=== PATIENT | female | born 1955 | race Caucasian/White ===

== ENCOUNTER 2016-05-12 10:39 | Day surgery (SDC) | payer OTHER ==
--- NOTE | 2016-05-11 17:42 | PCM.PREANE ---
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: no symptoms Respiratory: Reports: no symptoms Cardiovascular: Reports: no symptoms GI: Reports: no symptoms Other: Reports: none - PHYSICAL ASSESSMENT Height: 5 ft 5 in Weight: 74.843 kg ASA Class: 3 Mental Status: alert & oriented x3 Airway Class: Mallampati = 2 Dentition: Reports: normal dentition Thyro-Mental Finger Breadths: 3 Mouth Opening Finger Breadths: 3 ROM/Head Extension: full Respiratory Status: lungs clear to auscultation bilaterally Cardiovascular Status: regular rate & rhythm, normal S1, S2, no murmur, blood pressure WNL - ALLERGIES Allergies/Adverse Reactions: Allergies Allergy/AdvReac Type Severity Reaction Status Date / Time No Known Allergies Allergy Verified 04/28/15 14:28 - ANESTHESIA PLAN Anesthesia Type Planned: MAC - ACKNOWLEDGEMENTS Pt an appropriate candidate for the planned anesthesia: Yes Alternatives and risks of anesthesia discussed w pt/guardian: Yes Pt/Guardian understands and agree with anesthesia plan: Yes PreAnesthesia Questionnaire HEENT 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: None Cardiovascular 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: None Respiratory 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: None Gastrointestinal 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: Colon polyp 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 Genitourinary 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: None 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: Musculoskeletal 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: None Neurological 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: None Psychiatric 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: None, Anxiety Other Psychiatric History: "anxiety at times" Endocrine/Metabolic 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: Hypothyroidism Hematologic 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: Blood transfusion(s) Immunologic 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: None Oncologic (Cancer) 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: Basal cell carcinoma Dermatologic 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: None - Infectious Disease History Infectious Disease 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: None - Past Surgical History Head Surgeries/Procedures: Reports: None HEENT Surgical 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: Tonsillectomy Cardiovascular Surgical 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: None Respiratory Surgical 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: None GI Surgical 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: Colonoscopy Other GI Surgeries/Procedures: multiple colonoscopies Female Surgical 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: section Endocrine Surgical 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: None Neurological Surgical 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: None Musculoskeletal Surgical 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: None Dermatological Surgical 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: Skin biopsy - SUBSTANCE USE Smoking Status *Q: Never Smoker Tobacco Use Within Last Twelve Months: No Recreational Drug Use History: No - HOME MEDS Home Medications: Home Meds Levothyroxine Sodium [Tirosint] 1 tab PO DAILY 04/28/15 [History] Calcium Carbonate [Calcium] 1 tab PO DAILY 05/09/16 [History] - CURRENT (IN HOUSE) MEDS Current Meds: Current Medications Lactated Ringer's (Ringers, Lactated) 1,000 mls @ 125 mls/hr IV ASDIRECTED YOSSI Sodium Chloride (Saline Flush) 10 ml FLUSH ASDIRECTED PRN PRN Reason: Keep Vein Open Sodium Chloride (Saline Flush) 2.5 ml FLUSH ASDIRECTED PRN PRN Reason: Keep Vein Open
[~2016-05-12 10:39] MED LIST: Lactated Ringers 1,000 ML IV SCH; Sodium Chloride 0.9% 10 ML Syringe FLUSH PRN; Sodium Chloride 0.9% 2.5 ML Syringe FLUSH PRN
[2016-05-12] MEDS ORDERED: Propofol 200 MG/20 ML SDV ONE ×3 (11:17→13:21)
[2016-05-12] MEDS ORDERED: fentaNYL 100 MCG/2 ML SDV ONE (11:37)
[2016-05-12] MEDS ORDERED: Lidocaine 2% 5 ML SDV ONE (11:38)
[2016-05-12] MEDS ORDERED: Midazolam 1 MG/ML 2 ML SDV ONE (11:38)
--- NOTE | 2016-05-12 12:45 | PCM.OPNOTE ---
- General Post-Op/Procedure Note Date of Surgery/Procedure: 05/12/16 Operative Procedure(s): Diagnostic colonoscopy Findings: Hepatic flexture polyp Pre Op Diagnosis: Colon polyps Post-Op Diagnosis: same Anesthesia Technique: MAC Primary Surgeon: Milla Santamaria Condition: Good
[2016-05-12 13:10] VITALS: BP 114/69
--- NOTE | 2016-05-12 14:00 | PCM.POSTAN ---
POST ANESTHESIA ASSESSMENT - MENTAL STATUS Mental Status: alert, oriented - RESPIRATORY Respiratory Status: respiratory rate WNL, airway patent, O2 saturation stable - CARDIOVASCULAR CV Status: pulse rate WNL, blood pressure stable - GASTROINTESTINAL GI Status: no symptoms - POST OP HYDRATION Hydration Status: adequate & stable
--- NOTE | 2016-05-12 14:01 | PCM48HPAN ---
Post Anesthesia Note - EVALUATION WITHIN 48HRS OF ANESTHETIC Vital Signs in Normal Range: Yes Patient Participated in Evaluation: Yes Respiratory Function Stable: Yes Airway Patent: Yes Cardiovascular Function Stable: Yes Hydration Status Stable: Yes Pain Control Satisfactory: Yes Nausea and Vomiting Control Satisfactory: Yes Mental Status Recovered: Yes
--- NOTE | 2016-05-12 18:53 | OR ---
SURGEON: KTAHY PUENTES MD DATE OF PROCEDURE: 05/12/2016 PREOPERATIVE DIAGNOSIS: History of colon polyps. POSTOPERATIVE DIAGNOSIS: Hepatic flexure polyp. PROCEDURE PERFORMED: Colonoscopy with biopsies. INSTRUMENT USED: Olympus colonoscope. ANESTHESIA: MAC. EXTENT OF EXAM: To the cecum. PREPARATION: Good. LIMITATIONS: None. INDICATIONS: The patient is a 60-year-old female, who presents with a personal history of colon polyps. She has had multiple colonoscopies done with multiple polyps removed at that time. The patient is here for followup colonoscopy. We discussed the procedure as well as expected perioperative course. We discussed the risks, including bleeding, infection, or damage to surrounding structures, including perforation. The patient verbalized understanding and wishes to proceed. PROCEDURE IN DETAIL: The patient was brought to the endoscopy suite and placed in left lateral decubitus position. A time-out was completed verifying the patient's name, age, date of , allergies, and procedure to be performed. Monitored anesthesia care was induced and continuous oxygen was provided via face mask throughout the procedure. After adequate anesthesia was achieved, a digital rectal exam was performed. This examination was within normal limits. A well lubricated colonoscope was then inserted in the rectum and advanced under direct visualization to the level of cecum. The cecum was identified by both visual and anatomic landmarks. A photograph was taken of the cecal cap. The scope was then fully withdrawn while examining the color, texture, anatomy, and integrity of the mucosa from the cecum to the anal canal. A small 1-2 mm sessile polyp was noted within the hepatic flexure. This was removed using a cold biopsy forceps. The mass was sent as a hepatic flexure polyp. The remainder of the exam was normal other than diverticulosis that was limited to the sigmoid colon and was mild in nature. The scope was then brought into the rectum and retroflexed to allow visualization of the anal canal opening. This was normal and a photograph was taken. The scope was then straightened out and removed from the patient. The procedure was terminated. The patient was taken to the PACU in stable condition. ENDOSCOPIC DIAGNOSIS: Mild diverticulosis and hepatic flexure polyp. RECOMMENDATIONS: Follow up in clinic in 2 weeks. TERENCE ABREU /[id number]
== END 2016-05-12 13:32 | disposition home or self-care (01) ==
LOC: EDBD → MW.SDS 10:39
PROVIDERS: ATTEND Surgery
PROC: 0DBL8ZZ Excision of Transverse Colon, Via Natural or Artificial Opening Endoscopic (ICD-10-PCS; principal; 2016-05-12)
DX: D01.0 Carcinoma in situ of colon (principal); D12.3 Benign neoplasm of transverse colon; K57.30 Diverticulosis of large intestine without perforation or abscess without bleeding; E03.9 Hypothyroidism, unspecified; Z79.899 Other long term (current) drug therapy
CPT/HCPCS: 45380; 88305; J2250; J3010; J7120; J2704

== ENCOUNTER 2017-07-05 11:39 | Day surgery (SDC) | payer OTHER ==
[~2017-07-05 11:39] MED LIST changes: +Desflurane 240 ML Bottle ONE; +Lidocaine 2% 5 ML SDV ONE; +Propofol 200 MG/20 ML SDV ONE
--- NOTE | 2017-07-05 12:43 | PCM.PREANE ---
Preanesthetic Assessment - Anesthesia/Transfusion/Family Hx Anesthesia History: Prior Anesthesia Without Reaction Family History of Anesthesia Reaction: No Transfusion History: Prior Transfusion Without Reaction - Review of Systems General: No Symptoms Pulmonary: No Symptoms Cardiovascular: No Symptoms Gastrointestinal: No Symptoms Neurological: No Symptoms Other: Reports: None - Physical Assessment NPO Status Date: 07/04/17 O2 Sat by Pulse Oximetry: 97 Respiratory Rate: 16 Vital Signs: Last Vital Signs Temp 36.1 C 07/05/17 12:04 Pulse 73 07/05/17 12:04 Resp 16 07/05/17 12:04 BP 132/83 07/05/17 12:04 Pulse Ox 97 07/05/17 12:04 Height: 1.68 m Weight: 73.936 kg ASA Class: 2 Mental Status: Alert & Oriented x3 Airway Class: Mallampati = 1 Dentition: Reports: Normal Dentition ROM/Head Extension: Full Lungs: Clear to Auscultation, Normal Respiratory Effort Cardiovascular: Regular Rate, Regular Rhythm - Allergies Allergies/Adverse Reactions: Allergies Allergy/AdvReac Type Severity Reaction Status Date / Time No Known Allergies Allergy Verified 07/03/17 10:29 - Anesthesia Plan Pre-Op Medication Ordered: None - Acknowledgements Anesthesia Type Planned: MAC Pt an Appropriate Candidate for the Planned Anesthesia: Yes Alternatives and Risks of Anesthesia Discussed w Pt/Guardian: Yes Pt/Guardian Understands and Agrees with Anesthesia Plan: Yes PreAnesthesia Questionnaire HEENT 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: None Cardiovascular 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: None Respiratory 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: None Gastrointestinal 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: Colon Polyp 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 Genitourinary 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: None 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: Musculoskeletal 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: None Neurological 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: None Psychiatric 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: Anxiety, Depression Other Psychiatric History: "anxiety at times" Endocrine/Metabolic 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: None Hematologic 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: Blood Transfusion(s) Immunologic 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: None Oncologic (Cancer) 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: None Dermatologic 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: None - Infectious Disease History Infectious Disease 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: None - Past Surgical History Head Surgeries/Procedures: Reports: None HEENT Surgical 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: Tonsillectomy Cardiovascular Surgical 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: None Respiratory Surgical 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: None GI Surgical 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: Colonoscopy Other GI Surgeries/Procedures: multiple colonoscopies Female Surgical 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: Section Endocrine Surgical 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: None Neurological Surgical 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: None Musculoskeletal Surgical 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: None Dermatological Surgical 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: Skin Biopsy - SUBSTANCE USE Smoking Status *Q: Never Smoker Tobacco Use Within Last Twelve Months: No Recreational Drug Use History: No - HOME MEDS Home Medications: Home Meds Levothyroxine Sodium [Tirosint] 1 tab PO DAILY 04/28/15 [History] Calcium Carbonate [Calcium] 1 tab PO DAILY 05/09/16 [History] - CURRENT (IN HOUSE) MEDS Current Meds: Current Medications Lactated Ringer's (Ringers, Lactated) 1,000 mls @ 125 mls/hr IV ASDIRECTED YOSSI Last Admin: 07/05/17 12:39 Dose: 125 mls/hr Sodium Chloride (Saline Flush) 10 ml FLUSH ASDIRECTED PRN PRN Reason: Keep Vein Open Sodium Chloride (Saline Flush) 2.5 ml FLUSH ASDIRECTED PRN PRN Reason: Keep Vein Open Sodium Chloride (Saline Flush) 10 ml FLUSH ASDIRECTED PRN PRN Reason: Keep Vein Open Sodium Chloride (Saline Flush) 2.5 ml FLUSH ASDIRECTED PRN PRN Reason: Keep Vein Open Discontinued Medications Desflurane (Suprane) Confirm Administered Dose 480 ml .ROUTE .STK-MED ONE Stop: 07/03/17 08:52 Lidocaine (Xylocaine-Mpf 2%) Confirm Administered Dose 5 ml .ROUTE .STK-MED ONE Stop: 07/05/17 09:40 Propofol (Diprivan 20 Ml) Confirm Administered Dose 400 mg .ROUTE .STK-MED ONE Stop: 07/05/17 09:41
[2017-07-05] MEDS ORDERED: Propofol 200 MG/20 ML SDV ONE (13:57)
--- NOTE | 2017-07-05 14:08 | PCM.OPNOTE ---
- General Post-Op/Procedure Note Date of Surgery/Procedure: 07/05/17 Operative Procedure(s): Colonoscopy Findings: Sigmoid colon polyp x 2 in distal sigmoid colon. Transverse colon polyp Pre Op Diagnosis: History of colon polyps Post-Op Diagnosis: Sigmoid colon polyp x 2, transverse colon polyp Anesthesia Technique: MAC Primary Surgeon: Milla Santamaria Condition: Good
--- NOTE | 2017-07-05 14:34 | PCM.POSTAN ---
POST ANESTHESIA ASSESSMENT - MENTAL STATUS Mental Status: Alert, Oriented - RESPIRATORY Respiratory Status: Respiratory Rate WNL, Airway Patent, O2 Saturation Stable - CARDIOVASCULAR CV Status: Pulse Rate WNL, Blood Pressure Stable - GASTROINTESTINAL GI Status: No Symptoms - POST OP HYDRATION Hydration Status: Adequate & Stable
[2017-07-05 14:37] VITALS: BP 125/79
--- NOTE | 2017-07-05 14:41 | PCM48HPAN ---
Post Anesthesia Note - EVALUATION WITHIN 48HRS OF ANESTHETIC Vital Signs in Normal Range: Yes Patient Participated in Evaluation: Yes Respiratory Function Stable: Yes Airway Patent: Yes Cardiovascular Function Stable: Yes Hydration Status Stable: Yes Pain Control Satisfactory: Yes Nausea and Vomiting Control Satisfactory: Yes Mental Status Recovered: Yes Resp Rate: 14
--- NOTE | 2017-07-05 21:44 | OR ---
SURGEON: MILLA SANTAMARIA MD DATE OF PROCEDURE: 07/05/2017 PREOPERATIVE DIAGNOSIS: History of colon polyps. POSTOPERATIVE DIAGNOSES: 1. Transverse colon polyp. 2. Sigmoid colon polyps x2. 3. Diverticulosis. PROCEDURE PERFORMED: Diagnostic colonoscopy. ENDOSCOPIST: Milla Santamaria MD. ANESTHESIA: MAC. INSTRUMENT USED: Olympus colonoscope. EXTENT OF EXAM: To the cecum. PREPARATION: Good. LIMITATIONS: None. INDICATION FOR EXAMINATION: The patient is a 61-year-old female, who has had multiple colonoscopies in the past with multiple polyps removed. She presents for a yearly colonoscopy. We discussed the procedure, expected perioperative course, and risks including bleeding, infection, or damage to surrounding structures including perforation. The patient verbalized understanding and wishes to proceed. PROCEDURE IN DETAIL: The patient was brought into the OR and placed on the OR cart in a left lateral decubitus position. A time-out was completed verifying the patient's name, age, date of , allergies, and procedure to be performed. Monitored anesthesia care was induced and continuous oxygen was provided via nasal cannula throughout the procedure. After adequate sedation was achieved, a digital rectal exam was performed. The exam was within normal limits. A well lubricated colonoscope was inserted in the rectum and advanced under direct visualization to the level of the cecum. The cecum was identified by both visual and anatomic landmarks. A photograph was taken of the cecal cap; however, I was unable to retroflex the scope within the cecum given looping of the scope more proximally. The scope was then fully withdrawn while examining the color, texture, and anatomy of the mucosa of the colon. The patient was found to have a 2 to 3 mm sessile polyp in the transverse colon at 80 cm. This was removed using a cold biopsy forceps. She was found to have an approximately 5 mm sessile polyp within the distal sigmoid colon. This was removed using a cold biopsy forceps and labeled as colon polyp #1. A 15 cm from the anus and the distal sigmoid colon, the patient was found to have a pedunculated polyp between 5 mm to 1 cm in size. This was removed using a hot snare. The patient was also noted to have diverticulosis throughout the sigmoid colon. The scope was then brought into the rectum and retroflexed to allow visualization of the anal canal opening. This appeared normal and a photograph was taken. The scope was then straightened out and fully withdrawn. The cecum to anus time was 20 minutes. The patient tolerated the procedure well and was taken to PACU in stable condition. ENDOSCOPIC DIAGNOSES: 1. Transverse colon polyp. 2. Sigmoid colon polyps x2. 3. Diverticulosis. RECOMMENDATIONS: Follow up in the clinic in 2 weeks. TERENCE ABREU /[id number]
== END 2017-07-05 14:50 | disposition home or self-care (01) ==
LOC: MW.SDS 11:39
PROVIDERS: ATTEND Surgery
DX: D12.3 Benign neoplasm of transverse colon (principal); D12.5 Benign neoplasm of sigmoid colon; K57.30 Diverticulosis of large intestine without perforation or abscess without bleeding; M25.561 Pain in right knee; F41.9 Anxiety disorder, unspecified; F32.9 Major depressive disorder, single episode, unspecified; Z79.899 Other long term (current) drug therapy; Z90.89 Acquired absence of other organs; Z98.890 Other specified postprocedural states; Z86.010 Personal history of colon polyps
CPT/HCPCS: 45380; 45385; J7120; 00811; 88305; J2704

== ENCOUNTER 2018-06-18 12:12 | Day surgery (SDC) | payer OTHER ==
[~2018-06-18 12:12] MED LIST changes: -Desflurane 240 ML Bottle ONE; -Lidocaine 2% 5 ML SDV ONE; +Midazolam 1 MG/ML 2 ML SDV ONE; +Sodium Chloride 0.9% 10 ML SDV IV PRN; +fentaNYL 100 MCG/2 ML SDV ONE
--- NOTE | 2018-06-18 12:48 | PCM.PREANE ---
Preanesthetic Assessment - Anesthesia/Transfusion/Family Hx Anesthesia History: Prior Anesthesia Without Reaction Family History of Anesthesia Reaction: No Transfusion History: Prior Transfusion Without Reaction - Review of Systems General: No Symptoms Pulmonary: No Symptoms Cardiovascular: No Symptoms Gastrointestinal: No Symptoms Neurological: No Symptoms Other: Reports: None - Physical Assessment NPO Status Date: 06/17/18 Height: 5 ft 6 in Weight: 73.028 kg ASA Class: 2 Mental Status: Alert & Oriented x3 Airway Class: Mallampati = 2 Dentition: Reports: Bridge ROM/Head Extension: Full Lungs: Clear to Auscultation, Normal Respiratory Effort Cardiovascular: Regular Rate, Regular Rhythm - Allergies Allergies/Adverse Reactions: Allergies Allergy/AdvReac Type Severity Reaction Status Date / Time No Known Allergies Allergy Verified 06/14/18 07:38 - Blood Blood Available: No - Anesthesia Plan Pre-Op Medication Ordered: None - Acknowledgements Anesthesia Type Planned: General Anesthesia, MAC Pt an Appropriate Candidate for the Planned Anesthesia: Yes Alternatives and Risks of Anesthesia Discussed w Pt/Guardian: Yes Pt/Guardian Understands and Agrees with Anesthesia Plan: Yes PreAnesthesia Questionnaire HEENT 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: None Cardiovascular 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: None Respiratory 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: None Gastrointestinal 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: Colon Polyp 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 Genitourinary 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: None 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: Musculoskeletal 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: None Neurological 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: None Psychiatric 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: Anxiety, Depression Other Psychiatric History: depression & anxiety in the past Endocrine/Metabolic 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: Hypothyroidism Hematologic 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: Blood Transfusion(s) Immunologic 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: None Oncologic (Cancer) 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: Other (See Below) Other Oncologic History: carcinoma in situ of colon Dermatologic 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: None - Infectious Disease History Infectious Disease 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: None - Past Surgical History Head Surgeries/Procedures: Reports: None HEENT Surgical 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: Tonsillectomy Cardiovascular Surgical 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: None Respiratory Surgical 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: None GI Surgical 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: Colonoscopy Other GI Surgeries/Procedures: multiple colonoscopies Female Surgical 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: Section Endocrine Surgical 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: None Neurological Surgical 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: None Musculoskeletal Surgical 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: None Oncologic Surgical 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: None Dermatological Surgical 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: Skin Biopsy - SUBSTANCE USE Smoking Status *Q: Never Smoker Recreational Drug Use History: No - HOME MEDS Home Medications: Home Meds Levothyroxine Sodium [Tirosint] 1 tab PO DAILY 04/28/15 [History] Calcium Carbonate [Calcium] 1 tab PO DAILY 05/09/16 [History] Calcium Polycarbophil [Fiber Tabs] 2 tab PO DAILY 06/14/18 [History] Cholecalciferol (Vitamin D3) [Vitamin D3] 2,000 units PO DAILY 06/14/18 [History ] - CURRENT (IN HOUSE) MEDS Current Meds: Current Medications Lactated Ringer's (Ringers, Lactated) 1,000 mls @ 125 mls/hr IV ASDIRECTED YOSSI Sodium Chloride (Saline Flush) 10 ml FLUSH ASDIRECTED PRN PRN Reason: Keep Vein Open Sodium Chloride (Saline Flush) 2.5 ml FLUSH ASDIRECTED PRN PRN Reason: Keep Vein Open Sodium Chloride (Saline Flush) 10 ml FLUSH ASDIRECTED PRN PRN Reason: Keep Vein Open Sodium Chloride (Saline Flush) 2.5 ml FLUSH ASDIRECTED PRN PRN Reason: Keep Vein Open Sodium Chloride (Normal Saline) 10 ml IV ASDIRECTED PRN PRN Reason: IV Use Discontinued Medications Fentanyl (Sublimaze) Confirm Administered Dose 100 mcg .ROUTE .STK-MED ONE Stop: 06/18/18 07:51 Lidocaine HCl (Xylocaine-Mpf 1%) Confirm Administered Dose 5 mls @ as directed .ROUTE .STK-MED ONE Stop: 06/18/18 07:51 Midazolam HCl (Versed 1 Mg/Ml) Confirm Administered Dose 2 mg .ROUTE .STK-MED ONE Stop: 06/18/18 07:51 Propofol (Diprivan 20 Ml) Confirm Administered Dose 200 mg .ROUTE .STK-MED ONE Stop: 06/18/18 07:51
--- NOTE | 2018-06-18 14:42 | PCM.OPNOTE ---
- General Post-Op/Procedure Note Date of Surgery/Procedure: 06/18/18 Operative Procedure(s): diagnostic colonoscopy Findings: diverticula, descending colon polyp, sigmoid colon polyp Pre Op Diagnosis: history of colon polyps Post-Op Diagnosis: diverticulosis, descending colon polyp, sigmoid colon polyp Anesthesia Technique: MAC Primary Surgeon: Milla Santamaria EBL in mLs: 0 Condition: Good
--- NOTE | 2018-06-18 14:53 | PCM48HPAN ---
Post Anesthesia Note - EVALUATION WITHIN 48HRS OF ANESTHETIC Vital Signs in Normal Range: Yes Patient Participated in Evaluation: Yes Respiratory Function Stable: Yes Airway Patent: Yes Cardiovascular Function Stable: Yes Hydration Status Stable: Yes Pain Control Satisfactory: Yes Nausea and Vomiting Control Satisfactory: Yes Mental Status Recovered: Yes Resp Rate: 22
[2018-06-18 15:08] VITALS: BP 123/73
--- NOTE | 2018-06-18 17:11 | OR ---
SURGEON: MILLA SANTAMARIA MD DATE OF PROCEDURE: 06/18/2018 PREOPERATIVE DIAGNOSIS: History of colon polyps. POSTOPERATIVE DIAGNOSES: 1. Diverticulosis. 2. Sigmoid colon polyp. 3. Descending colon polyp. PROCEDURE PERFORMED: Diagnostic colonoscopy. ENDOSCOPIST: Milla Santamaria MD. ANESTHESIA: MAC. INSTRUMENT USED: Olympus colonoscope. EXTENT OF EXAM: To the cecum. PREPARATION: Good. LIMITATIONS: None. INDICATIONS FOR EXAMINATION: The patient is a 62-year-old female with a history of colon polyps. She gets yearly colonoscopies and is found to have tubular adenomas or tubulovillous adenomas with each scope. The patient and I discussed the need for another colonoscopy. I explained the procedure, expected perioperative course, and risks including bleeding, infection, or damage to surrounding structures including perforation. The patient verbalized understanding and wishes to proceed. PROCEDURE IN DETAIL: The patient was brought into the endoscopy suite and placed in a left lateral decubitus position. A time-out was completed verifying the patient's name, age, date of , allergies, and procedure to be performed. Monitored anesthesia care was induced and continuous oxygen was provided via nasal cannula throughout the procedure. After adequate sedation was achieved, a digital rectal exam was performed. This exam was within normal limits. A well lubricated colonoscope was inserted into the rectum and advanced under direct visualization to the level of the cecum. The cecum was identified by both visual and anatomic landmarks. A photograph was taken of the cecal cap. I did retroflex the scope within the cecum, but forgot to take a photograph. The scope was then straightened out and fully withdrawn while examining the color, texture, anatomy, and integrity of the mucosa from the cecum to the anal canal. The patient was found to have scattered diverticula throughout the sigmoid colon. She had a sessile polyp in the proximal descending colon as well as in the midportion of the sigmoid colon. Both were removed in piecemeal fashion using a cold biopsy forceps. The scope was then brought into the rectum and retroflexed to allow visualization of the anal canal opening. This appeared normal and a photograph was taken. The scope was then straightened out and fully withdrawn. The cecum to anus time was 12 minutes. The patient tolerated the procedure well and was taken to PACU in stable condition. ENDOSCOPIC DIAGNOSES: 1. Diverticulosis. 2. Sigmoid colon polyp. 3. Descending colon polyp. RECOMMENDATIONS: Follow up in clinic in 2 weeks. TERENCE / LOIS /[id number]
== END 2018-06-18 15:06 | disposition home or self-care (01) ==
LOC: MW.SDS 12:12
PROVIDERS: ATTEND Surgery
DX: D12.4 Benign neoplasm of descending colon (principal); D12.5 Benign neoplasm of sigmoid colon; K57.30 Diverticulosis of large intestine without perforation or abscess without bleeding; E03.9 Hypothyroidism, unspecified; Z86.010 Personal history of colon polyps; Z85.038 Personal history of other malignant neoplasm of large intestine; Z80.0 Family history of malignant neoplasm of digestive organs; Z79.899 Other long term (current) drug therapy
CPT/HCPCS: 45380; 88305; J2001; J2250; J2704; J3010; J7120

== ENCOUNTER 2019-08-11 08:40 | Day surgery (SDC) | payer OTHER ==
[~2019-08-11 08:40] MED LIST changes: -Midazolam 1 MG/ML 2 ML SDV ONE; -Propofol 200 MG/20 ML SDV ONE; -fentaNYL 100 MCG/2 ML SDV ONE
[2019-08-11] MEDS ORDERED: Propofol 200 MG/20 ML SDV ONE ×2 (09:14→10:20)
[2019-08-11] MEDS ORDERED: Lidocaine 2% 5 ML SDV ONE ×2 (09:17→10:20)
--- NOTE | 2019-08-11 09:21 | PCM.PREANE ---
Preanesthetic Assessment - Anesthesia/Transfusion/Family Hx Anesthesia History: Prior Anesthesia Without Reaction Family History of Anesthesia Reaction: No Transfusion History: Prior Transfusion Without Reaction - Review of Systems General: No Symptoms Pulmonary: No Symptoms Cardiovascular: No Symptoms Gastrointestinal: No Symptoms Neurological: No Symptoms Other: Reports: None - Physical Assessment NPO Status Date: 08/10/19 Height: 5 ft 6 in Weight: 71.668 kg ASA Class: 2 Mental Status: Alert & Oriented x3 Airway Class: Mallampati = 2 Dentition: Reports: Normal Dentition ROM/Head Extension: Full Lungs: Clear to Auscultation, Normal Respiratory Effort Cardiovascular: Regular Rate, Regular Rhythm - Allergies Allergies/Adverse Reactions: Allergies Allergy/AdvReac Type Severity Reaction Status Date / Time No Known Allergies Allergy Verified 08/07/19 12:26 - Blood Blood Available: No - Anesthesia Plan Pre-Op Medication Ordered: None - Acknowledgements Anesthesia Type Planned: General Anesthesia (tiva) Pt an Appropriate Candidate for the Planned Anesthesia: Yes Alternatives and Risks of Anesthesia Discussed w Pt/Guardian: Yes Pt/Guardian Understands and Agrees with Anesthesia Plan: Yes Additional Comments: PMH: thyroid replacement PreAnesthesia Questionnaire HEENT 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: Other (See Below) Other HEENT History: has lower permanent dental bridge Cardiovascular 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: None Respiratory 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: None Gastrointestinal 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: Colon Polyp 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 Genitourinary 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: None 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: Musculoskeletal 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: None Neurological 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: None Psychiatric 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: Depression Other Psychiatric History: not currently taking medication Endocrine/Metabolic 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: Hypothyroidism Hematologic 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: Blood Transfusion(s) Immunologic 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: None Oncologic (Cancer) 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: Basal Cell Carcinoma, Other (See Below) Other Oncologic History: hx of skin cancer and malignant colon polyp Dermatologic 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: None - Infectious Disease History Infectious Disease 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: None - Past Surgical History Head Surgeries/Procedures: Reports: None HEENT Surgical 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: Tonsillectomy GI Surgical 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: Colonoscopy Female Surgical 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: Section Other Female Surgeries/Procedures: x3 Dermatological Surgical 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: Skin Biopsy - SUBSTANCE USE Smoking Status *Q: Never Smoker Recreational Drug Use History: No - HOME MEDS Home Medications: Home Meds Levothyroxine Sodium [Tirosint] 75 mcg PO QAM 04/28/15 [History] Calcium Carbonate [Calcium] 600 mg PO DAILY 05/09/16 [History] - CURRENT (IN HOUSE) MEDS Current Meds: Current Medications Lactated Ringer's (Ringers, Lactated) 1,000 mls @ 125 mls/hr IV ASDIRECTED YOSSI Sodium Chloride (Saline Flush) 10 ml FLUSH ASDIRECTED PRN PRN Reason: Keep Vein Open Sodium Chloride (Saline Flush) 2.5 ml FLUSH ASDIRECTED PRN PRN Reason: Keep Vein Open Sodium Chloride (Saline Flush) 10 ml FLUSH ASDIRECTED PRN PRN Reason: Keep Vein Open Sodium Chloride (Saline Flush) 2.5 ml FLUSH ASDIRECTED PRN PRN Reason: Keep Vein Open Sodium Chloride (Normal Saline) 10 ml IV ASDIRECTED PRN PRN Reason: IV Use Discontinued Medications Propofol (Diprivan 20 Ml) Confirm Administered Dose 400 mg .ROUTE .STK-MED ONE Stop: 08/11/19 09:15
[2019-08-11] MEDS ORDERED: fentaNYL 100 MCG/2 ML SDV IVPUSH PRN (10:41)
[2019-08-11] MEDS ORDERED: EPINEPHrine 1:10,000 1 MG/10 ML Syringe IVPUSH PRN (10:41)
[2019-08-11] MEDS ORDERED: Atropine 0.1 MG/ML 10 ML Syringe IVPUSH PRN ×2 (10:41)
[2019-08-11] MEDS ORDERED: 50% Dextrose in Water 50 ML Syringe IVPUSH PRN (10:41)
[2019-08-11] MEDS ORDERED: Albuterol 0.083% 2.5 MG/3 ML Neb Soln NEB PRN (10:41)
[2019-08-11] MEDS ORDERED: Naloxone 0.4 MG/ML Syringe IVPUSH PRN (10:41)
--- NOTE | 2019-08-11 11:08 | PCM.OPNOTE ---
- General Post-Op/Procedure Note Date of Surgery/Procedure: 08/11/19 Operative Procedure(s): Diagnostic colonoscopy with polypectomy Findings: Transverse colon polyp x 1 Pre Op Diagnosis: History of colon polyps Post-Op Diagnosis: Transverse colon polyp Anesthesia Technique: MAC Primary Surgeon: Milla Santamaria Condition: Good
--- NOTE | 2019-08-11 11:17 | PCM.POSTAN ---
POST ANESTHESIA ASSESSMENT - MENTAL STATUS Mental Status: Alert, Oriented - VITAL SIGNS Vital Signs: Last Vital Signs Temp 36.6 C 08/11/19 10:53 Pulse 71 08/11/19 11:09 Resp 19 08/11/19 11:09 BP 114/72 08/11/19 11:09 Pulse Ox 98 08/11/19 11:09 - RESPIRATORY Respiratory Status: Respiratory Rate WNL, Airway Patent, O2 Saturation Stable - CARDIOVASCULAR CV Status: Pulse Rate WNL, Blood Pressure Stable - GASTROINTESTINAL GI Status: No Symptoms - POST OP HYDRATION Hydration Status: Adequate & Stable (meets PAR phase 2 discharge criteria, no anesthesia issues or concerns)
--- NOTE | 2019-08-11 11:31 | PCM48HPAN ---
Post Anesthesia Note - EVALUATION WITHIN 48HRS OF ANESTHETIC Vital Signs in Normal Range: Yes Patient Participated in Evaluation: Yes Respiratory Function Stable: Yes Airway Patent: Yes Cardiovascular Function Stable: Yes Nausea and Vomiting Control Satisfactory: Yes Mental Status Recovered: Yes Vital Signs: Last Vital Signs Temp 36.6 C 08/11/19 10:53 Pulse 71 08/11/19 11:09 Resp 19 08/11/19 11:09 BP 114/72 08/11/19 11:09 Pulse Ox 98 08/11/19 11:09
--- NOTE | 2019-08-11 11:32 | OR ---
SURGEON: MILLA SANTAMARIA MD DATE OF PROCEDURE: 08/11/2019 PREOPERATIVE DIAGNOSIS: History of colon polyps. POSTOPERATIVE DIAGNOSES: 1. Transverse colon polyp. 2. Diverticulosis. PROCEDURE PERFORMED: Diagnostic colonoscopy with polypectomy. PRIMARY SURGEON: Milla Santamaria MD. ANESTHESIA: MAC. INSTRUMENT USED: Olympus colonoscope. EXTENT OF EXAM: To the cecum. PREPARATION: Good. LIMITATIONS: None. INDICATIONS FOR EXAMINATION: The patient is a 63-year-old female with a history of multiple colon polyps. 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 The patient and I discussed the need for a repeat colonoscopy. I explained the procedure, expected perioperative course, and risks. She verbalized understanding and wished to proceed. PROCEDURE IN DETAIL: The patient was brought into the OR and placed on the OR cart in the left lateral decubitus position. A time-out was completed verifying the patient's name, age, date of , allergies, and procedure to be performed. Monitored anesthesia care was induced and continuous oxygen was provided via nasal cannula throughout the procedure. After adequate sedation was achieved, a digital rectal exam was performed. This exam was within normal limits. A well- lubricated colonoscope was inserted in the rectum and advanced under direct visualization to the level of the cecum. The cecum was identified by both visual and anatomic landmarks. A photograph was taken of the cecal cap, however, I was unable to retroflex the scope within the cecum due to the scope looping more proximally. The scope was then fully withdrawn while examining the color, texture, anatomy, and integrity of mucosa from the cecum to the anal canal. The patient was found to have a small sessile polyp within the distal transverse colon. This was removed in piecemeal fashion using a cold biopsy forceps. The patient was also noted to have diverticulosis throughout the sigmoid colon. The scope was then brought into the rectum and retroflexed to allow visualization of the anal canal opening. This appeared normal and a photograph was taken. The scope was then straightened out and fully withdrawn. The cecum to anus time was 10 minutes. The patient tolerated the procedure well and was transferred to the PACU in stable condition. ENDOSCOPIC DIAGNOSES: 1. Transverse colon polyp. 2. Diverticulosis. RECOMMENDATIONS: Follow up in clinic in 2 weeks. TERENCE ABREU /[id number]
[2019-08-11 12:37] VITALS: BP 125/79; PULSE 62
== END 2019-08-11 11:37 | disposition home or self-care (01) ==
LOC: MW.SDS 08:40
PROVIDERS: ATTEND Surgery
DX: Z12.11 Encounter for screening for malignant neoplasm of colon (principal); D12.3 Benign neoplasm of transverse colon; K57.30 Diverticulosis of large intestine without perforation or abscess without bleeding; E03.9 Hypothyroidism, unspecified; Z79.899 Other long term (current) drug therapy; Z79.890 Hormone replacement therapy; Z85.038 Personal history of other malignant neoplasm of large intestine; Z86.004 Personal history of in-situ neoplasm of other and unspecified digestive organs
CPT/HCPCS: 45380; J2001; J2704; J7120; 88305

== ENCOUNTER 2021-02-24 12:45 | Day surgery (SDC) | payer OTHER ==
--- NOTE | 2021-02-24 11:25 | PCM.PREANE ---
Preanesthetic Assessment - Anesthesia/Transfusion/Family Hx Anesthesia History: Prior Anesthesia Without Reaction Transfusion History: Prior Transfusion Without Reaction - Review of Systems General: No Symptoms Pulmonary: No Symptoms Cardiovascular: No Symptoms Gastrointestinal: No Symptoms Neurological: No Symptoms Other: Reports: None - Physical Assessment NPO Status Date: 02/24/21 NPO Status Time: 00:00 Height: 5 ft 6 in Weight: 161 lb ASA Class: 2 Mental Status: Alert & Oriented x3 Airway Class: Mallampati = 1 Dentition: Reports: Normal Dentition ROM/Head Extension: Full Lungs: Clear to Auscultation, Normal Respiratory Effort Cardiovascular: Regular Rate, Regular Rhythm - Allergies Allergies/Adverse Reactions: Allergies Allergy/AdvReac Type Severity Reaction Status Date / Time No Known Allergies Allergy Verified 02/18/21 07:45 - Acknowledgements Anesthesia Type Planned: General Anesthesia Pt an Appropriate Candidate for the Planned Anesthesia: Yes Alternatives and Risks of Anesthesia Discussed w Pt/Guardian: Yes Pt/Guardian Understands and Agrees with Anesthesia Plan: Yes PreAnesthesia Questionnaire HEENT 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: Other (See Below) Other HEENT History: has lower permanent dental bridge Cardiovascular 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: None Respiratory 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: Asthma Other Respiratory History: seasonal asthma Gastrointestinal 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: Colon Polyp Other Gastrointestinal History: tubular adenoma of colon, 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 Genitourinary 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: None MALE MODEL 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: Musculoskeletal 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: None Neurological 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: None Psychiatric 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: Depression Endocrine/Metabolic 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: Hypothyroidism Hematologic 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: Blood Transfusion(s) Other Hematologic History: blood transfusion after last c/section Immunologic 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: None Oncologic (Cancer) 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: Basal Cell Carcinoma, Other (See Below) Other Oncologic History: hx of basal skin cancer on should, tubular adenoma col on polyp, & 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 Dermatologic 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: None - Infectious Disease History Infectious Disease 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: None - Past Surgical History Head Surgeries/Procedures: Reports: None HEENT Surgical 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: Tonsillectomy Cardiovascular Surgical 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: None Respiratory Surgical 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: None GI Surgical 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: Colonoscopy Other GI Surgeries/Procedures: multiple colonoscopies Female Surgical 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: Section Other Female Surgeries/Procedures: x3 Endocrine Surgical 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: None Neurological Surgical 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: None Musculoskeletal Surgical 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: Other (See Below) Other Musculoskeletal Surgeries/Procedures:: tummy tuck Oncologic Surgical 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: None Dermatological Surgical 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: Skin Biopsy - SUBSTANCE USE Tobacco Use Status *Q: Never Tobacco User - HOME MEDS Home Medications: Home Meds Levothyroxine Sodium [Tirosint] 75 mcg PO QAM 04/28/15 [History] Calcium Carbonate [Calcium] 600 mg PO DAILY 05/09/16 [History] Albuterol Sulfate [Albuterol Sulfate Hfa] 1 - 2 puff INH ASDIRECTED PRN 02/18/21 [History] Cholecalciferol (Vitamin D3) [Vitamin D3] 1,000 units PO DAILY 02/18/21 [History] Cyanocobalamin (Vitamin B-12) [Vitamin B-12] 1 tab.chew CHEW DAILY 02/18/21 [History] Fish Oil/DHA/EPA [Fish Oil 1,200 MG] 1,200 mg PO DAILY 02/18/21 [History] Vitamin C/Biotin [Hair, Skin and Nails Gummies] 1 tab.chew CHEW DAILY 02/18/21 [History] buPROPion HCL [Wellbutrin Xl] 150 mg PO DAILY 02/18/21 [History] calcium polycarbophiL [Fiber Tabs] 1 tab PO DAILY 02/18/21 [History] - CURRENT (IN HOUSE) MEDS Current Meds: Current Medications Lactated Ringer's (Ringers, Lactated) 1,000 mls @ 125 mls/hr IV ASDIRECTED YOSSI Sodium Chloride (Sodium Chloride 0.9% 10 Ml Syringe) 10 ml FLUSH ASDIRECTED PRN PRN Reason: Keep Vein Open Sodium Chloride (Sodium Chloride 0.9% 2.5 Ml Syringe) 2.5 ml FLUSH ASDIRECTED PRN PRN Reason: Keep Vein Open Sodium Chloride (Sodium Chloride 0.9% 10 Ml Syringe) 10 ml FLUSH ASDIRECTED PRN PRN Reason: Keep Vein Open Sodium Chloride (Sodium Chloride 0.9% 2.5 Ml Syringe) 2.5 ml FLUSH ASDIRECTED PRN PRN Reason: Keep Vein Open Sodium Chloride (Sodium Chloride 0.9% 20 Ml Sdv) 10 ml IV ASDIRECTED PRN PRN Reason: IV Use Discontinued Medications Fentanyl (Fentanyl 100 Mcg/2 Ml Sdv) Confirm Administered Dose 100 mcg .ROUTE .STK-MED ONE Stop: 02/24/21 10:48 Midazolam HCl (Midazolam 1 Mg/Ml 2 Ml Sdv) Confirm Administered Dose 2 mg .ROUTE .STK-MED ONE Stop: 02/24/21 10:48 Propofol (Propofol 200 Mg/20 Ml Sdv) Confirm Administered Dose 200 mg .ROUTE .STK-MED ONE Stop: 02/24/21 10:47
[~2021-02-24 12:45] MED LIST changes: +Midazolam 1 MG/ML 2 ML SDV ONE; +Propofol 200 MG/20 ML SDV ONE; -Sodium Chloride 0.9% 10 ML SDV IV PRN; +Sodium Chloride 0.9% 20 ML SDV IV PRN; +fentaNYL 100 MCG/2 ML SDV ONE
[2021-02-24] MEDS ORDERED: Propofol 200 MG/20 ML SDV ONE (14:26)
--- NOTE | 2021-02-24 14:57 | PCM48HPAN ---
Post Anesthesia Note - EVALUATION WITHIN 48HRS OF ANESTHETIC Vital Signs in Normal Range: Yes Patient Participated in Evaluation: Yes Respiratory Function Stable: Yes Airway Patent: Yes Cardiovascular Function Stable: Yes Hydration Status Stable: Yes Pain Control Satisfactory: Yes Nausea and Vomiting Control Satisfactory: Yes Mental Status Recovered: Yes Vital Signs: Last Vital Signs Temp 36.5 C 02/24/21 14:51 Pulse 69 02/24/21 14:51 Resp 13 02/24/21 14:51 BP 94/49 L 02/24/21 14:51 Pulse Ox 97 02/24/21 14:51
--- NOTE | 2021-02-24 14:57 | PCM.POSTAN ---
POST ANESTHESIA ASSESSMENT - MENTAL STATUS Mental Status: Alert, Oriented - VITAL SIGNS Vital Signs: Last Vital Signs Temp 36.5 C 02/24/21 14:51 Pulse 69 02/24/21 14:51 Resp 13 02/24/21 14:51 BP 94/49 L 02/24/21 14:51 Pulse Ox 97 02/24/21 14:51 - RESPIRATORY Respiratory Status: Respiratory Rate WNL, Airway Patent, O2 Saturation Stable - CARDIOVASCULAR CV Status: Pulse Rate WNL, Blood Pressure Stable - GASTROINTESTINAL GI Status: No Symptoms - POST OP HYDRATION Hydration Status: Adequate & Stable
--- NOTE | 2021-02-24 15:01 | PCM.OPNOTE ---
- General Post-Op/Procedure Note Date of Surgery/Procedure: 02/24/21 Operative Procedure(s): Screening colonoscopy with polypectomy Findings: ascending colon polyp x 4, transverse colon polyp x 2, descending colon polyp x 2, sigmoid colon polyp x 1, diverticulosis Pre Op Diagnosis: History of colon polyp Post-Op Diagnosis: ascending colon polyp x 4, transverse colon polyp x 2, descending colon polyp x 2, sigmoid colon polyp x 1, diverticulosis Anesthesia Technique: [facility] [place] Primary Surgeon: Milla Santamaria Condition: Good
[2021-02-24 15:24] VITALS: BP 115/63; PULSE 62
--- NOTE | 2021-02-24 21:42 | OR ---
SURGEON: MILLA SANTAMARIA MD DATE OF PROCEDURE: 02/24/2021 PREOPERATIVE DIAGNOSES: History of colon polyps, and high-risk colon cancer gene. POSTOPERATIVE DIAGNOSES: 1. Ascending colon polyp x4. 2. Transverse colon polyp x2. 3. Descending colon polyp x2. 4. Sigmoid colon polyp x1. 5. Diverticulosis. PROCEDURE PERFORMED: Screening colonoscopy with polypectomy. PRIMARY SURGEON: Milla Santamaria MD ANESTHESIA: General. FLUIDS: 900 mL crystalloid. INSTRUMENT USED: Olympus colonoscope. EXTENT OF EXAM: To the cecum. PREPARATION: Good. LIMITATIONS: None. INDICATIONS FOR EXAMINATION: The patient is a 65-year-old female with a history of multiple colon polyps. She has been tested and carries a high-risk colon cancer gene. Her last colonoscopy was 18 months ago. The patient and I discussed the need for repeat colonoscopy. I explained the procedure, expected perioperative course, and the risks. She verbalized understanding and wishes to proceed. PROCEDURE IN DETAIL: The patient was brought in to the endoscopy suite and placed in the left lateral decubitus position. A time-out was completed verifying the patient's name, age, date of , allergies, and procedure to be performed. Anesthesia was induced and continuous oxygen was provided via face mask throughout the procedure. After adequate sedation was achieved, a digital rectal exam was performed. This exam revealed mildly enlarged internal hemorrhoids. A well-lubricated colonoscope was inserted in the rectum and advanced under direct visualization to the level of the cecum. The cecum was identified by both visual and anatomic landmarks. A photograph was taken of the cecal cap as well as with the scope retroflexed within the cecum. The scope was then fully withdrawn while examining the color, texture, anatomy, and integrity of the mucosa from the cecum to the anal canal. The patient was found to have multiple sessile polyps. There were four in the ascending colon, two in the transverse colon, two in the descending colon, and one in the sigmoid colon. These were all removed in piecemeal fashion using a cold biopsy forceps. The patient was noted to have diverticulosis within the sigmoid colon. The scope was brought into the rectum and retroflexed to allow visualization of the anal canal opening. This again showed the enlarged internal hemorrhoids and a photograph was taken. The scope was straightened out and fully withdrawn. The cecum to anus time was greater than 6 minutes. The patient tolerated the procedure well and was transferred to the PACU in stable condition. ENDOSCOPIC DIAGNOSES: 1. Ascending colon polyp x4. 2. Transverse colon polyp x2. 3. Descending colon polyp x2. 4. Sigmoid colon polyp x1. 5. Diverticulosis. RECOMMENDATION: Follow up in clinic in two weeks. TERENCE ABREU /[id number]
== END 2021-02-24 15:35 | disposition home or self-care (01) ==
LOC: MW.SDS 12:45
PROVIDERS: ATTEND Surgery
DX: Z12.11 Encounter for screening for malignant neoplasm of colon (principal); D12.5 Benign neoplasm of sigmoid colon; D12.2 Benign neoplasm of ascending colon; D12.3 Benign neoplasm of transverse colon; D12.4 Benign neoplasm of descending colon; K57.30 Diverticulosis of large intestine without perforation or abscess without bleeding; K64.8 Other hemorrhoids; Z79.899 Other long term (current) drug therapy; Z98.890 Other specified postprocedural states; E03.9 Hypothyroidism, unspecified
CPT/HCPCS: 45380; J2250; J2704; J3010; J7120; 00812

== ENCOUNTER 2022-05-09 06:32 | Day surgery (SDC) | payer OTHER ==
[~2022-05-09 06:32] MED LIST changes: -Midazolam 1 MG/ML 2 ML SDV ONE; -Propofol 200 MG/20 ML SDV ONE; -fentaNYL 100 MCG/2 ML SDV ONE
[2022-05-09] MEDS ORDERED: fentaNYL 100 MCG/2 ML SDV ONE (07:27)
[2022-05-09] MEDS ORDERED: Lidocaine 2% 5 ML SDV ONE (07:27)
[2022-05-09] MEDS ORDERED: Propofol 200 MG/20 ML SDV ONE (07:27)
[2022-05-09 12:22] VITALS: BP 129/88; PULSE 67
== END 2022-05-09 08:38 | disposition home or self-care (01) ==
LOC: MW.SDS 06:32
PROVIDERS: ATTEND Surgery
DX: Z12.11 Encounter for screening for malignant neoplasm of colon (principal); D12.0 Benign neoplasm of cecum; K57.30 Diverticulosis of large intestine without perforation or abscess without bleeding; E03.9 Hypothyroidism, unspecified; J45.909 Unspecified asthma, uncomplicated; Z86.010 Personal history of colon polyps; Z79.899 Other long term (current) drug therapy; Z79.890 Hormone replacement therapy; Z98.890 Other specified postprocedural states
CPT/HCPCS: 45380; J2704; J3010; J7120; 00811; J3490

== ENCOUNTER 2024-06-19 07:32 | Day surgery (SDC) | payer OTHER ==
[~2024-06-19 07:32] MED LIST changes: -Lactated Ringers 1,000 ML IV SCH
[2024-06-19] MEDS: Lactated Ringers 1,000 ML IV SCH (08:13)
[2024-06-19] MEDS ORDERED: propofoL 500 MG/50 ML 50 ML ONE (08:58)
[2024-06-19 10:25] VITALS: BP 127/78; PULSE 62
== END 2024-06-19 10:30 | disposition home or self-care (01) ==
LOC: MW.SDS 07:32
PROVIDERS: ATTEND Surgery
DX: Z12.11 Encounter for screening for malignant neoplasm of colon (principal); D12.0 Benign neoplasm of cecum; D12.3 Benign neoplasm of transverse colon; K57.30 Diverticulosis of large intestine without perforation or abscess without bleeding; E03.9 Hypothyroidism, unspecified; Z79.890 Hormone replacement therapy; Z79.899 Other long term (current) drug therapy; Z86.0100 Personal history of colon polyps, unspecified
CPT/HCPCS: 45380; J2704; J7120; 00811